=== PATIENT | female | born 1995 | race Caucasian/White ===

== ENCOUNTER 2020-07-06 15:34 | Emergency (ER) | payer SELFPAY ==
--- NOTE | 2020-07-06 16:23 | EDM.PDOC ---
ED HPI GENERAL MEDICAL PROBLEM - General Chief Complaint: Upper Extremity Injury/Pain Stated Complaint: THINKS RIGHT MASSIMO IS BROKE Time Seen by Provider: 07/06/20 16:22 Source of Information: Reports: Patient History Limitations: Reports: No Limitations - History of Present Illness INITIAL COMMENTS - FREE TEXT/NARRATIVE: Pt arrived with pain in the rt thumb. He was pulling a dog out from under a coffee table the thumb got pressure from the table and looked like it was not in alignment. Onset: Other (happened last nite. ) Duration: Hour(s): Location: Reports: Upper Extremity, Right Associated Symptoms: Reports: No Other Symptoms - Related Data Allergies Allergy/AdvReac Type Severity Reaction Status Date / Time Penicillins Allergy Rash Verified 07/06/20 16:17 Home Meds: Home Meds NK [No Known Home Meds] 07/06/20 [History] Past Medical History Cardiovascular History: Reports: Hypertension PIPE BENDER History: Reports: Dysfunctional Uterine Bleeding Review of Systems - Review of Systems Review Of Systems: See Below Constitutional: Reports: No Symptoms Eyes: Reports: No Symptoms Ears: Reports: No Symptoms Nose: Reports: No Symptoms Mouth/Throat: Reports: No Symptoms Respiratory: Reports: No Symptoms Cardiovascular: Reports: No Symptoms GI/Abdominal: Reports: No Symptoms Genitourinary: Reports: No Symptoms Musculoskeletal: Reports: Other (pain in rt thumb) Skin: Reports: No Symptoms ED EXAM, GENERAL - Physical Exam Exam: See Below Free Text/Narrative:: pt arrived with pain in her rt thumb after pulling a dog out from under a table. She is slightly limited with the flexion. Exam Limited By: No Limitations General Appearance: Alert Extremities: Other ( thumb has mild swelling at the m_p joint. it is tender. She has an abrasion over the thumb. ) Neurological: Alert, Oriented, Normal Cognition Psychiatric: Normal Affect Course - Vital Signs Last Recorded V/S: Last Vital Signs Temp 36.3 C 07/06/20 16:22 Pulse 75 07/06/20 16:22 Resp 16 07/06/20 16:22 BP 181/124 H 07/06/20 16:22 Pulse Ox 97 07/06/20 16:22 - Orders/Labs/Meds Orders: Active Orders 24 hr Category Date Time Status Fingers Thumb Rt F5 [CR] Stat Exams 07/06/20 16:20 Taken - Re-Assessments/Exams Free Text/Narrative Re-Assessment/Exam: 07/06/20 17:00 07/06/20 17:01 pt had a xray which did not reveal any fractures. a finger splint was applied. 07/07/20 07:41 -- metal splint Departure - Departure Time of Disposition: 16:55 Disposition: Home, Self-Care 01 Condition: Fair Clinical Impression: Sprain of right thumb - Discharge Information Instructions: Finger Sprain, Adult, [id number] Referrals: PCP,None [Primary Care Provider] - Forms: ED Department Discharge, ED Return to Work/School Form Care Plan Goals: soak in warm water and do range of motion so thumb does not get stiff, leave the splint on for comfort tonight, Motrin 400mg qid as needed for pain, no work tonight and then resume as usual. - My Orders Last 24 Hours: My Active Orders 07/06/20 16:20 Fingers Thumb Rt F5 [CR] Stat - Assessment/Plan Last 24 Hours: My Active Orders 07/06/20 16:20 Fingers Thumb Rt F5 [CR] Stat
--- NOTE | 2020-07-08 09:08 | CR ---
Fingers Thumb Rt F5 CLINICAL HISTORY: Pain, trauma FINDINGS: There is no fracture or dislocation. Articular surfaces are smooth IMPRESSION: Negative
== END 2020-07-06 17:14 | disposition home or self-care (01) ==
LOC: JP.ED 15:34
DX: S63.601A Unspecified sprain of right thumb, initial encounter (principal); I10 Essential (primary) hypertension; Z88.0 Allergy status to penicillin; W22.8XXA Striking against or struck by other objects, initial encounter
CPT/HCPCS: 73140-26-F5; 73140-F5; 99283